=== PATIENT | female | born 1995 | race African-American/Black ===

== ENCOUNTER 2023-10-29 08:19 | Outpatient (CLI) | payer MEDICAID, OTHER | END 2023-10-29 08:20 | disposition home or self-care (01) | LOC: CSHRAD 08:19 | PROVIDERS: ATTEND Nurse Practitioner Women's Health | DX: Z34.02 Encounter for supervision of normal first pregnancy, second trimester (principal); Z3A.19 19 weeks gestation of pregnancy | CPT/HCPCS: 76805 ==